=== PATIENT | male | born 1950 | race Caucasian/White ===

== ENCOUNTER → 2017-08-06 | Outpatient (REF) | payer OTHER ==
[2017-08-06 14:03] LABS: BLOOD UREA NITROGEN 15 MG/DL (7-18); CREATININE FOR GFR 0.82 MG/DL (0.70-1.30); GLOMERULAR FILTRATION RATE > 60.0 (>49)
== END ==
LOC: M LABNEURO 13:10
PROVIDERS: ATTEND Psychiatry & Neurology Neurology
DX: Z01.818 Encounter for other preprocedural examination (principal)

== ENCOUNTER 2017-12-31 10:12 | Day surgery (SDC) | payer MEDICARE, MEDICAID ==
[2017-12-31] MEDS ORDERED: LR 1,000 ML IV ×2 (10:30→13:00)
[2017-12-31] MEDS: LIDOCAINE 1% SDV INJ 30 ML VIAL As Ordered (10:50)
[2017-12-31] MEDS: CLINDAMYCIN 900 MG in APPROPRIATE DILUENT 1 EA IV (11:37)
[2017-12-31] MEDS ORDERED: PROPOFOL 200 MG/20 ML VIAL As Ordered (11:46)
[2017-12-31] MEDS ORDERED: fentaNYL 100 MCG/2 ML INJECTION (J3010) As Ordered (11:46)
[2017-12-31] MEDS ORDERED: MIDAZOLAM INJ 2 MG/2 ML VIAL (J2250) As Ordered (11:46)
[2017-12-31] MEDS ORDERED: LIDOCAINE 2% INJ 100 MG/5 ML SDV (FOR ANES.) As Ordered (11:46)
[2017-12-31] MEDS: LIDOCAINE 0.5% SDV INJ 50 ML VIAL As Ordered (11:48)
[2017-12-31] MEDS: methylPREDNISolone SUSP 40 MG/ML (DEPO-medrol) VIAL (J1030) As Ordered (12:23)
[2017-12-31] MEDS ORDERED: NORCO, ANEXSIA 5/325MG TABLET (HYDROcodone/ACETAMINOPHEN) As Ordered (12:47)
[2017-12-31] MEDS: NORCO, ANEXSIA 5/325MG TABLET (HYDROcodone/ACETAMINOPHEN) PO (12:58)
[2017-12-31] MEDS ORDERED: ONDANSETRON 4MG/2ML VIAL (J2405) IV (13:00)
[2017-12-31] MEDS ORDERED: fentaNYL 100 MCG/2 ML INJECTION (J3010) IV (13:00)
[2017-12-31] MEDS ORDERED: METOCLOPRAMIDE INJ 10MG/2ML VIAL (J2765) IV (13:00)
[2017-12-31] MEDS ORDERED: PERCOCET 5MG/325MG TAB PO (13:00)
== END 2017-12-31 14:00 | disposition home or self-care (01) ==
LOC: M SDC 10:12
DX: G56.11 Other lesions of median nerve, right upper limb (principal); E78.5 Hyperlipidemia, unspecified; K21.9 Gastro-esophageal reflux disease without esophagitis; Z79.82 Long term (current) use of aspirin; Z79.899 Other long term (current) drug therapy
CPT/HCPCS: 64721

== ENCOUNTER → 2020-11-11 | Outpatient (CLI) | payer MEDICARE, MEDICAID ==
[~2020-11-11] MED LIST: ASPI81TA26 PO; BOOSLIQ PO; DIAZ5TAB PO; DICL50TAB PO; MAGN400T35 PO; MELO7.5T7 PO; NEUR300C PO; NIAC250C13 PO; NIAS500T23 PO; OMEP1CAP73 PO; QUET50TA3 PO; SM G150T PO; VITA200016 PO; VITA500C24 PO; VITAD400CA PO; ZINC1TAB2 PO; [UNRECOGNIZED DRUG - OTHER] PO
== END ==
LOC: M LABSMTC 10:09
PROVIDERS: ATTEND Anesthesiology
DX: Z01.812 Encounter for preprocedural laboratory examination (principal); Z20.822 Contact with and (suspected) exposure to COVID-19

== ENCOUNTER 2020-11-16 06:08 | Inpatient (IN) | payer MEDICARE, MEDICAID ==
[~2020-11-16] VITALS: Ht 160 cm; Wt 71.7 kg
[~2020-11-16 06:08] MED LIST changes: +HEPARIN SOD (PORCINE) 5000UNITS/ML 1ML VIAL/SYRINGE SQ ONE; +LIDOCAINE 1% MDV 20ML VIAL SQ PRN; +LR 1,000 ML IV ONE; +ceFAZolin SOD 2 GM in IV 1 EA IV ONE
[2020-11-16] MEDS ORDERED: BUPIVACAINE HCL 0.25% 30ML VIAL As Ordered ONE (07:11)
[2020-11-16] MEDS ORDERED: LIDOCAINE 1% SDV 30ML VIAL As Ordered ONE (07:12)
[2020-11-16] MEDS ORDERED: ONDANSETRON 4MG/2ML VIAL As Ordered ONE (07:14)
[2020-11-16] MEDS ORDERED: fentaNYL 100 MCG/2 ML INJECTION (J3010) As Ordered ONE (07:14)
[2020-11-16] MEDS ORDERED: MIDAZOLAM INJ 2MG/2ML VIAL (J2250 PER 1MG) As Ordered ONE (07:14)
[2020-11-16] MEDS ORDERED: ACETAMINOPHEN 1000MG 100ML IV BTL (OFIRMEV) (J0131 PER 10MG) As Ordered ONE (07:14)
[2020-11-16] MEDS ORDERED: HYDROmorphone HCL 2 MG/ML 1ML VIAL (J1170) As Ordered ONE (07:14)
[2020-11-16] MEDS ORDERED: LIDOCAINE 2% 100MG/5ML SDV (FOR ANES.) As Ordered ONE (07:14)
[2020-11-16] MEDS ORDERED: ROCURONIUM BROMIDE 50 MG/5 ML VIAL As Ordered ONE ×2 (07:14→09:08)
[2020-11-16] MEDS ORDERED: dexameTHASONE 4 MG/ML 1ML VIAL (J1100 PER 1MG) As Ordered ONE (07:14)
[2020-11-16] MEDS ORDERED: propofoL 200 MG/20 ML VIAL As Ordered ONE (07:14)
[2020-11-16] MEDS ORDERED: SUGAMMADEX SODIUM 500 MG/5 ML VIAL (BRIDION) As Ordered ONE (07:20)
[2020-11-16] MEDS ORDERED: LIDOCAINE 5% OINT 30GM TUBE As Ordered ONE (07:23)
[2020-11-16] MEDS ORDERED: ACETAMINOPHEN TAB 650MG DOSE (2X325MG) PO PRN (07:30)
[2020-11-16] MEDS ORDERED: MORPHINE 2 MG/ML 1ML VIAL (J2270) IV PRN (07:30)
[2020-11-16] MEDS ORDERED: ONDANSETRON 4MG/2ML VIAL IV PRN ×2 (07:30→14:35)
[2020-11-16] MEDS ORDERED: ePHEDrine SULFATE 25 MG/5 ML(5MG/ML) SYRINGE As Ordered ONE (08:17)
[2020-11-16] MEDS ORDERED: GLYCOPYRROLATE INJ 0.2 MG/ML 2 ML VIAL As Ordered ONE (08:17)
[2020-11-16] MEDS: DOCUSATE SODIUM 100MG CAPSULE PO SCH ×2 (09:00→21:00)
[2020-11-16] MEDS ORDERED: LABETALOL 100MG/20ML VIAL As Ordered ONE (09:06)
[2020-11-16] MEDS ORDERED: METOPROLOL 5 MG/5 ML VIAL As Ordered ONE (09:06)
[2020-11-16] MEDS ORDERED: HEPARIN SOD (PORCINE) 5000UNITS/ML 1ML VIAL/SYRINGE SC SCH (14:00)
[2020-11-16] MEDS ORDERED: METOCLOPRAMIDE INJ 10MG/2ML VIAL (J2765 PER 1) IV PRN (14:35)
[2020-11-16] MEDS ORDERED: PERCOCET 5MG/325MG TAB PO PRN (14:35)
[2020-11-16] MEDS ORDERED: fentaNYL 100 MCG/2 ML INJECTION (J3010) IV PRN (14:35)
[2020-11-16] MEDS ORDERED: LR 1,000 ML IV SCH (14:35)
[2020-11-16] MEDS: HYDROMORPHONE HCL 0.5 MG/ 0.5 ML SYRINGE (J1170 PER 1) IV PRN ×2 (14:39→15:18)
--- NOTE | 2020-11-16 14:39 | ROOPDOC ---
[facility] Report Of Operation Report of Operation DATE OF PROCEDURE: 11/16/20 PREPROCEDURE DIAGNOSIS: Prostate cancer. POSTPROCEDURE DIAGNOSIS: Prostate cancer. PROCEDURE: Robotic-assisted laparoscopic radical prostatectomy with bilateral pelvic lymph node dissection, lysis of adhesions. SURGEON: Cris Mckeon MD CLIENT SUCCESS MANAGER: Alison Perry NP ANESTHESIA: General. OPERATIVE INDICATIONS: This is a 70 year old male with clinical T1c [place] 3+4 prostate cancer. After a discussion of the options for treatment, he elected to undergo the above procedure. DESCRIPTION OF PROCEDURE: The patient was brought to the operating room and general anesthesia was induced. Prophylactic antibiotics were infused. He was then placed in the dorsal lithotomy position and prepped and draped in the usual sterile fashion. At this point, a Shelton catheter was inserted into the bladder and the balloon was filled with 10 mL of sterile water. We then made a midline incision just above the umbilicus for an 8 mm port. A Veress needle was utilized to achieve pneumoperitoneum. Next, an 8 mm port was inserted into the incision and subsequently a camera was inserted. There were no injuries from the Veress needle or initial trocar placement. At this point, we placed the remaining ports, including a 12 mm catering assistant port and then three robotic ports in the usual configuration. Once all the ports were placed, the robot was docked. There was a significant amount of omental adhesions and sigmoid colon adhesions to the abdominal wall. Lysis of these adhesions was then performed. The bladder was then released from the anterior abdominal wall using electrocautery. Once the bladder was dropped, the fat overlying the prostate was cleared using electrocautery. The superficial dorsal vein was controlled with electrocautery. The endopelvic fascia was opened on both sides and the dorsal venous complex was cleared. Next, a #0 Vicryl [id number] stitch was placed around the dorsal venous complex. Once that was done, the bladder was opened and dissected away from the prostate. The patient had a very large prostate and a large median lobe. The prostate was lifted up but due to the size of the prostate and the median lobe it was very difficult to dissect the prostate posteriorly. I therefore did not dissect out the vasa deferentia and the seminal vesicles. The rectum was safely mobilized away from the prostate. Bilateral prostatic pedicles were taken using the Harmonic scalpel. The pedicles were carried towards the apex. After taking care of the pedicles and mobilizing the rectum off the prostate below, the prostate was only connected by the urethra. At this point, the dorsal venous complex was transected with electrocautery. The urethra was then opened and the catheter was withdrawn and the posterior urethra was transected, thus freeing the prostate. At this point, we checked for hemostasis and it did appear very good. Next, we performed bilateral pelvic lymph node dissection. This was done in a standard fashion. The limits of dissection were the iliac vein proximally, the obturator nerve distally, the pelvic sidewall laterally, and the bladder medially. All lymphatic tissue within these limits was removed. I performed the same procedure on both the right and left sides. Hemostasis was then obtained with bipolar electrocautery. The lymphatic packets were then placed in separate Endo Catch bags for future retrieval. Once hemostasis was confirmed, I then moved on to perform the vesicourethral anastomosis. This was performed with a Quill stitch in a running fashion. Once this was done, the final #20-Estonian Shelton catheter was placed. The balloon was filled with 15 mL of sterile water. Upon completion of the vesicourethral anastomosis, it was tested by filling the bladder with sterile saline water. The anastomosis appeared to be watertight. At this point, the prostate and seminal vesicles were placed in an Endo Catch bag for future retrieval. The robot was then undocked. A Bunny fascial closure device was utilized to place a #0 Vicryl suture between the fascia of the 12 mm catering assistant port. At this point, a Bobby- Alexander drain was brought in through the left robotic port skin site and the drain was positioned anterior to the bladder. The drain was secured to the skin with #2-0 Ethilon suture. Next, all the remaining ports were removed and there did not appear to be any bleeding from any of the port sites. The prostate, as well as the lymphatic packets were then extracted from the camera port site after the skin was extended. The fascia in this incision was then closed with a running #0 Vicryl stitch. The previously placed #0 Vicryl free ties through the catering assistant port were then tied down and all incisions were irrigated. Last, all of the incisions were closed with running subcuticular #4-0 Monocryl sutures. Local anesthesia was applied. Dermabond was then applied to the incisions. This marked the conclusion of the procedure. The patient was then taken out of the dorsal lithotomy position, awakened from anesthesia and transported to the recovery room in stable condition. ESTIMATED BLOOD LOSS: 500 mL. COMPLICATIONS: None. SPECIMENS: Prostate, right pelvic lymph nodes, left pelvic lymph nodes. PLAN: The patient will be admitted to the hospital postoperatively, and he will likely be discharged home within the next 1-2 days. CRIS MCKEON MD Nov 16, 2020 07:37
[2020-11-16] MEDS: PERCOCET 5MG/325MG TAB PO PRN ×2 (14:43→21:37)
[2020-11-16 15:35] LABS: HEMATOCRIT 41.8 % (42.0-52.0); HEMOGLOBIN 14.1 g/dl (13.5-17.5); MEAN CORPUSCULAR HEMOGLOBIN 32.3 pg (27.0-33.0); MEAN CORPUSCULAR HGB CONC 33.7 g/dl (32.0-36.5); MEAN CORPUSCULAR VOLUME 95.9 fl (80.0-96.0); PLATELET COUNT, AUTOMATED 240 10^3/uL (150-450); RED BLOOD COUNT 4.36 10^6/uL (4.30-6.10); WHITE BLOOD COUNT 11.1 10^3/uL (4.0-10.0)
[2020-11-16 15:51] LABS: BLOOD UREA NITROGEN 20 MG/DL (7-18); CALCIUM LEVEL 8.4 MG/DL (8.8-10.2); CARBON DIOXIDE LEVEL 26 MEQ/L (21-32); CHLORIDE LEVEL 108 MEQ/L (98-107); CREATININE FOR GFR 1.17 MG/DL (0.70-1.30); GLOMERULAR FILTRATION RATE > 60.0 (>49); GLUCOSE, FASTING 160 MG/DL (70-100); POTASSIUM SERUM 4.5 MEQ/L (3.5-5.1); SODIUM LEVEL 143 MEQ/L (136-145)
[2020-11-16 16:10] VITALS: BP 122/76
[2020-11-16] MEDS: ceFAZolin SOD 1 GM in D5W MINI-BAG PLUS 50 ML IV SCH (16:36)
[2020-11-16] MEDS: NS 1,000 ML IV SCH (16:37)
[2020-11-16 16:40] VITALS: BP 124/76
[2020-11-16 17:40] VITALS: BP 120/76
[2020-11-16 18:40] VITALS: BP 117/76
[2020-11-16 19:40] VITALS: BP 118/58
[2020-11-16 20:40] VITALS: BP 118/62
[2020-11-16] MEDS: QUEtiapine FUMARATE 50MG TAB PO SCH (21:36)
[2020-11-16] MEDS: HEPARIN SOD (PORCINE) 5000UNITS/ML 1ML VIAL/SYRINGE SC SCH (21:37)
[2020-11-17] MEDS: ceFAZolin SOD 1 GM in D5W MINI-BAG PLUS 50 ML IV SCH (00:01)
[2020-11-17] MEDS: NS 1,000 ML IV SCH (04:00)
[2020-11-17] MEDS: PERCOCET 5MG/325MG TAB PO PRN ×4 (04:45→19:26)
[2020-11-17 05:00] VITALS: BP 115/60
[2020-11-17] MEDS: HEPARIN SOD (PORCINE) 5000UNITS/ML 1ML VIAL/SYRINGE SC SCH ×3 (05:02→20:33)
[2020-11-17 06:32] LABS: MEAN CORPUSCULAR HEMOGLOBIN 32.9 pg (27.0-33.0); MEAN CORPUSCULAR HGB CONC 34.3 g/dl (32.0-36.5); MEAN CORPUSCULAR VOLUME 95.9 fl (80.0-96.0); PLATELET COUNT, AUTOMATED 222 10^3/uL (150-450); RED BLOOD COUNT 3.65 10^6/uL (4.30-6.10); WHITE BLOOD COUNT 9.1 10^3/uL (4.0-10.0)
[2020-11-17 06:58] LABS: BLOOD UREA NITROGEN 18 MG/DL (7-18); CALCIUM LEVEL 7.9 MG/DL (8.8-10.2); CARBON DIOXIDE LEVEL 26 MEQ/L (21-32); CHLORIDE LEVEL 108 MEQ/L (98-107); CREATININE FOR GFR 0.78 MG/DL (0.70-1.30); GLOMERULAR FILTRATION RATE > 60.0 (>49); GLUCOSE, FASTING 111 MG/DL (70-100); POTASSIUM SERUM 3.8 MEQ/L (3.5-5.1); SODIUM LEVEL 141 MEQ/L (136-145)
[2020-11-17] MEDS: DOCUSATE SODIUM 100MG CAPSULE PO SCH ×2 (08:39→20:33)
[2020-11-17] MEDS: OMEPRAZOLE 20 MG CAP PO SCH (08:40)
--- NOTE | 2020-11-17 09:34 | IPNPDOC ---
Subjective Review oF Systems Chief Complaint The patient is a 70-year-old male admitted with a reason for visit of Prostate Cancer. Events since Last Encounter No acute events o/n. Patient noting discomfort in his arms and abdomen. Was not able to sleep last night. No n/v. No f/c/ns. Objective Physical Examination General Exam: Alert, Cooperative, No Acute Distress ABDOMEN EXAM: Soft, Tenderness (mild), Other (incisions clean/dry/intact; JM w/ serous output) Skin Exam: Nl turgor and temperature Psych Exam: Mental status NL, Mood NL Other physical findings catheter draining yellow urine Vital Signs/I&O Vital Signs Date Time Temp Pulse Resp B/P (MAP) Pulse Ox O2 Delivery O2 Flow Rate FiO2 11/17/20 09:10 18 Room Air 11/17/20 05:00 98.8 73 115/60 (78) 93 11/16/20 15:41 4 I&O- Last 24 Hours up to 6 AM 11/17/20 06:00 Intake Total 3695 ml Output Total 1045 ml Balance 2650 ml Laboratory Data Labs 24H Laboratory Tests 2 11/16/20 14:31: Nucleated Red Blood Cells % (auto) 0.0, Anion Gap 9, Glomerular Filtration Rate > 60.0, Calcium Level 8.4L 11/17/20 05:56: Nucleated Red Blood Cells % (auto) 0.0, Anion Gap 7L, Glomerular Filtration Rate > 60.0, Calcium Level 7.9L CBC/BMP Laboratory Tests 11/16/20 14:31 11/17/20 05:56 Assessment/Plan Date Seen The patient was seen on 11/17/20. Patient Summary This is a 70 y/o M POD1 s/p RALP w/ BPLND. Having some difficulty w/ pain control - patient expected to have pretty much no pain postop. Discussed w/ patient that some pain, specifically incisional pain is expected but it will im prove. Good UOP. Normal JM output. Plan/VTE VTE Prophylaxis Ordered?: Yes VTE Exclusion Mechanical Proph: N/A:VTE Prophy Ordered VTE Exclusion Pharmacological: N/A:VTE Prophy Ordered Plan/Urinary Catheter Urinary Catheter: Other Catheter: (catheter to stay in for at least 7 days) Plan - d/c IVF - strict I/O - continue home meds - percocet prn pain - ambulate - SCDs when in bed - incentive spirometry - SQH - advance diet as tolerated - discharge pending better pain control - will go home w/ the catheter and likely w/o the JM drain CRIS MCKEON MD Nov 17, 2020 09:34
[2020-11-17 10:00] VITALS: BP 108/50
[2020-11-17 14:00] VITALS: BP 109/51
[2020-11-17 20:00] VITALS: BP 121/65
[2020-11-17] MEDS: QUEtiapine FUMARATE 50MG TAB PO SCH (20:33)
[2020-11-17] MEDS ORDERED: diazePAM 5MG TABLET PO PRN (20:45)
[2020-11-18] MEDS: PERCOCET 5MG/325MG TAB PO PRN (00:45)
[2020-11-18 06:06] VITALS: BP 117/64
[2020-11-18] MEDS: HEPARIN SOD (PORCINE) 5000UNITS/ML 1ML VIAL/SYRINGE SC SCH ×3 (06:34→21:00)
[2020-11-18] MEDS: CIPROFLOXACIN 500MG TABLET PO SCH (07:01)
[2020-11-18 07:07] LABS: CREATININE BF 0.5 MG/DL (NOT ESTABLISHED); SOURCE, BODY FLUID CREATININE PERITONEAL
[2020-11-18 07:39] LABS: HEMATOCRIT 33.7 % (42.0-52.0); HEMOGLOBIN 11.3 g/dl (13.5-17.5); MEAN CORPUSCULAR VOLUME 96.8 fl (80.0-96.0); RED BLOOD COUNT 3.48 10^6/uL (4.30-6.10); WHITE BLOOD COUNT 7.3 10^3/uL (4.0-10.0)
[2020-11-18 07:40] LABS: MEAN CORPUSCULAR HEMOGLOBIN 32.5 pg (27.0-33.0); MEAN CORPUSCULAR HGB CONC 33.5 g/dl (32.0-36.5); PLATELET COUNT, AUTOMATED 193 10^3/uL (150-450)
[2020-11-18 08:08] LABS: BLOOD UREA NITROGEN 14 MG/DL (7-18); CALCIUM LEVEL 7.9 MG/DL (8.8-10.2); CARBON DIOXIDE LEVEL 27 MEQ/L (21-32); CHLORIDE LEVEL 109 MEQ/L (98-107); CREATININE FOR GFR 0.54 MG/DL (0.70-1.30); GLOMERULAR FILTRATION RATE > 60.0 (>49); GLUCOSE, FASTING 93 MG/DL (70-100); POTASSIUM SERUM 4.2 MEQ/L (3.5-5.1); SODIUM LEVEL 142 MEQ/L (136-145)
[2020-11-18] MEDS: OMEPRAZOLE 20 MG CAP PO SCH (09:10)
[2020-11-18] MEDS: DOCUSATE SODIUM 100MG CAPSULE PO SCH ×2 (09:10→21:00)
[2020-11-18] MEDS ORDERED: FUROSEMIDE 40MG/4ML VIAL (J1940) IV ONE (09:25)
--- NOTE | 2020-11-18 09:28 | IPNPDOC ---
Subjective Review oF Systems Chief Complaint The patient is a 70-year-old male admitted with a reason for visit of Prostate Cancer. Events since Last Encounter Patient slept better last night. He notes most of his pain is from abdominal discomfort from gas pain. No n/v. Did not ambulate much yesterday. No flatus yet. No f/c/ns. Objective Physical Examination General Exam: Alert, Cooperative, No Acute Distress ABDOMEN EXAM: Soft, Tenderness (mild), Other (incisions clean/dry/intact; JM w/ serous output) Skin Exam: Nl turgor and temperature Neuro Exam: Normal Speech Psych Exam: Mental status NL, Mood NL Other physical findings catheter draining yellow urine Vital Signs/I&O Vital Signs Date Time Temp Pulse Resp B/P (MAP) Pulse Ox O2 Delivery O2 Flow Rate FiO2 11/18/20 06:06 99.0 88 20 117/64 (81) 92 Room Air 11/16/20 15:41 4 I&O- Last 24 Hours up to 6 AM 11/18/20 06:00 Intake Total 1680 ml Output Total 855 ml Balance 825 ml Laboratory Data Labs 24H Laboratory Tests 2 11/18/20 06:30: Body Fluid Creatinine Source PERITONEAL, Body Fluid Creatinine 0.5 11/18/20 06:59: Nucleated Red Blood Cells % (auto) 0.0, Anion Gap 6L, Glomerular Filtration Rate > 60.0, Calcium Level 7.9L CBC/BMP Laboratory Tests 11/18/20 06:59 Assessment/Plan Date Seen The patient was seen on 11/18/20. Patient Summary This is a 70 y/o M POD2 s/p RALP w/ BPLND. He is doing well, but needs to ambulate more. His abdominal discomfort should improve once he starts passing more flatus. JM Cr checked yesterday for high drain output and it was 0.5, consistent w/ serum. Plan/VTE VTE Prophylaxis Ordered?: Yes VTE Exclusion Mechanical Proph: N/A:VTE Prophy Ordered VTE Exclusion Pharmacological: N/A:VTE Prophy Ordered Plan/Urinary Catheter Urinary Catheter: Other Catheter: (catheter to stay in for at least 7 days) Plan - will try to stick mainly to tylenol for pain - ambulate more - lasix 10mg IV ordered as patient is about 3L positive - SCDs when in bed - SQH - incentive spirometry - possible discharge home later today w/ catheter CRIS MCKEON MD Nov 18, 2020 09:28
[2020-11-18] MEDS ORDERED: MIRALAX *UNIT DOSE* 17GM PACKET PO ONE (10:45)
[2020-11-18 15:07] VITALS: BP 114/56
[2020-11-18] MEDS ORDERED: PERCOCET PO (16:37)
[2020-11-18] MEDS ORDERED: CIPR-249 PO (16:37)
[2020-11-18] MEDS ORDERED: DOK1CAP7 PO (16:37)
[2020-11-18 20:42] VITALS: BP 115/63
[2020-11-18] MEDS: QUEtiapine FUMARATE 50MG TAB PO SCH (21:00)
[2020-11-19] MEDS: CIPROFLOXACIN 500MG TABLET PO SCH (05:22)
[2020-11-19] MEDS: HEPARIN SOD (PORCINE) 5000UNITS/ML 1ML VIAL/SYRINGE SC SCH ×2 (05:22→14:04)
[2020-11-19 05:52] VITALS: BP 116/64
[2020-11-19 06:17] LABS: HEMATOCRIT 33.9 % (42.0-52.0); HEMOGLOBIN 11.7 g/dl (13.5-17.5); MEAN CORPUSCULAR HEMOGLOBIN 32.6 pg (27.0-33.0); MEAN CORPUSCULAR HGB CONC 34.5 g/dl (32.0-36.5); MEAN CORPUSCULAR VOLUME 94.4 fl (80.0-96.0); PLATELET COUNT, AUTOMATED 211 10^3/uL (150-450); RED BLOOD COUNT 3.59 10^6/uL (4.30-6.10); WHITE BLOOD COUNT 7.1 10^3/uL (4.0-10.0)
[2020-11-19 06:40] LABS: BLOOD UREA NITROGEN 12 MG/DL (7-18); CALCIUM LEVEL 8.2 MG/DL (8.8-10.2); CARBON DIOXIDE LEVEL 27 MEQ/L (21-32); CHLORIDE LEVEL 108 MEQ/L (98-107); GLOMERULAR FILTRATION RATE > 60.0 (>49); GLUCOSE, FASTING 96 MG/DL (70-100); POTASSIUM SERUM 3.8 MEQ/L (3.5-5.1); SODIUM LEVEL 141 MEQ/L (136-145)
[2020-11-19] MEDS: OMEPRAZOLE 20 MG CAP PO SCH (09:04)
[2020-11-19] MEDS: PERCOCET 5MG/325MG TAB PO PRN ×2 (09:05→14:45)
[2020-11-19] MEDS: DOCUSATE SODIUM 100MG CAPSULE PO SCH (09:05)
== END 2020-11-19 15:27 | disposition home or self-care (01) | DRG 708 ==
LOC: M OR 06:08 → M MS5PR 16:15
PROVIDERS: ADMIT Urology; ATTEND Urology
PROC: 07TC4ZZ Resection of Pelvis Lymphatic, Percutaneous Endoscopic Approach (ICD-10-PCS; 2020-11-16)
PROC: 8E0W4CZ Robotic Assisted Procedure of Trunk Region, Percutaneous Endoscopic Approach (ICD-10-PCS; 2020-11-16)
PROC: 0VT04ZZ Resection of Prostate, Percutaneous Endoscopic Approach (ICD-10-PCS; principal; 2020-11-16 07:30)
DX: C61 Malignant neoplasm of prostate (principal); Z79.899 Other long term (current) drug therapy

== ENCOUNTER → 2022-06-15 | Outpatient (REF) | payer MEDICARE, MEDICAID ==
[~2022-06-15] MED LIST changes: +CIPR-249 PO; +DOK1CAP4 PO; -HEPARIN SOD (PORCINE) 5000UNITS/ML 1ML VIAL/SYRINGE SQ ONE; -LIDOCAINE 1% MDV 20ML VIAL SQ PRN; -LR 1,000 ML IV ONE; +PERCOCET PO; -QUET50TA3 PO; +QUET50TA4 PO; -ceFAZolin SOD 2 GM in IV 1 EA IV ONE
== END ==
LOC: M LAB REF 16:43
PROVIDERS: ATTEND Urology
DX: N39.0 Urinary tract infection, site not specified (principal)